=== PATIENT | female | born 1950 | race Asian ===

== ENCOUNTER 2017-01-06 10:04 | Outpatient (CLI) | payer OTHER | END 2017-01-06 19:35 | disposition home or self-care (01) | LOC: MAMMO 10:04 | DX: Z12.31 Encounter for screening mammogram for malignant neoplasm of breast (principal) | CPT/HCPCS: G0202-TC ==

== ENCOUNTER 2018-02-03 11:16 | Outpatient (CLI) | payer OTHER | END 2018-02-03 22:28 | disposition home or self-care (01) | LOC: MAMMO 11:16 | DX: Z12.31 Encounter for screening mammogram for malignant neoplasm of breast (principal) ==

== ENCOUNTER 2020-05-16 14:08 | Outpatient (CLI) | payer OTHER | END 2020-05-16 23:01 | disposition home or self-care (01) | LOC: RAD 14:08 | PROVIDERS: ATTEND Nurse Practitioner Family | DX: R06.02 Shortness of breath (principal) ==

== ENCOUNTER 2022-07-19 14:24 | Outpatient (CLI) | payer OTHER ==
[2022-07-19 14:53] LABS: POTASSIUM 4.1 mmol/L (3.6-5.2)
== END 2022-07-19 22:57 | disposition home or self-care (01) ==
LOC: LABW 14:24
PROVIDERS: ATTEND Internal Medicine Cardiovascular Disease
DX: R60.0 Localized edema (principal); R06.09 Other forms of dyspnea; Z79.899 Other long term (current) drug therapy
CPT/HCPCS: 36415; 80048; 83880

== ENCOUNTER 2023-01-30 10:34 | Outpatient (CLI) | payer OTHER ==
[2023-01-30 10:57] LABS: PLATELET COUNT 347 K/uL (152-353)
== END 2023-01-30 18:45 | disposition home or self-care (01) ==
LOC: LABW 10:34
PROVIDERS: ATTEND Family Medicine
DX: R06.09 Other forms of dyspnea (principal); M25.511 Pain in right shoulder; G25.81 Restless legs syndrome; N18.31 Chronic kidney disease, stage 3a; R73.01 Impaired fasting glucose; R79.89 Other specified abnormal findings of blood chemistry; J45.20 Mild intermittent asthma, uncomplicated; R53.83 Other fatigue; M62.830 Muscle spasm of back; I12.9 Hypertensive chronic kidney disease with stage 1 through stage 4 chronic kidney disease, or unspecified chronic kidney disease
CPT/HCPCS: 36415; 80053; 82728; 83540; 83550; 84165; 85027; 85379; Q9963